=== PATIENT | female | born 1990 | race Two or more races ===

== ENCOUNTER 2020-08-05 15:52 | Emergency (ER) | payer SELFPAY ==
[~2020-08-05] VITALS: Ht 160 cm; Wt 46.3 kg
[2020-08-05 17:32] VITALS: BP 123/65
== END 2020-08-05 17:17 | disposition home or self-care (01) ==
LOC: ER 15:52
DX: J20.9 Acute bronchitis, unspecified (principal); Z20.828 Contact with and (suspected) exposure to other viral communicable diseases
CPT/HCPCS: 36415; 71045; 87426

== ENCOUNTER 2024-12-13 23:47 | Emergency (ER) | payer MEDICAID ==
[~2024-12-13] VITALS: Ht 162.6 cm; Wt 77.7 kg
[2024-12-14 00:02] VITALS: TEMP 98.8
[2024-12-14] MEDS ORDERED: AUG875T PO (01:29)
[2024-12-14] MEDS ORDERED: KETO10TA PO (01:30)
[2024-12-14] MEDS ORDERED: ACET650T12 PO (01:30)
[2024-12-14] MEDS ORDERED: BENZ20GE13 MT (01:30)
--- NOTE | 2024-12-14 01:38 | ED.PDOC ---
History of Present Illness HPI Comments 34-year-old female came to ER for dental pain. Patient states she broke her right upper bicuspid tooth 4 days ago and since then she has been having pain at the site. No fever noted. Chief Complaint: Tooth Pain Time Seen by MD: 01:37 Reviewed Notes: Nurses Notes Allergies: Coded Allergies: NO KNOWN ALLERGIES (Unverified , 08/05/20) Home Meds Active Scripts Benzocaine (Dental) (ORAL ANALGESIC MAXIMUM ST) 20 % Gel, 20 % MT TIDPRN PRN for 3 Days, #10 GEL Prov:DIPESH JACKSON MD 12/14/24 Acetaminophen (Acetaminophen Er) 650 Mg Tab, 650 MG PO TIDPRN PRN for 5 Days, #15 TAB Prov:DIPESH JACKSON MD 12/14/24 Ketorolac Tromethamine (Ketorolac Tromethamine) 10 Mg Tab, 1 TAB PO TID, #15 TAB Prov:DIPESH JACKSON MD 12/14/24 Amoxicillin & Pot Clavulanate (AUGMENTIN TABLET) 875 Mg Tb, 875 MG PO BID for 7 Days, #14 TAB Prov:DIPESH JACKSON MD 12/14/24 Information Source: Patient Mode of Arrival: Ambulatory Severity: Moderate Review of Systems REVIEW OF SYSTEMS: No fever, no chills, or fatigue HEENT: No sore throat, no earache, no congestion, no neck pain. Cardiac: No chest pain. No palpitations. Lungs: No shortness of breath, no cough. GI: No nausea, no vomiting, no diarrhea, no constipation, no abdominal pain : No dysuria, frequency, or urgency. No hematuria. Musculoskeletal: No joint pain , no joint swelling, no extremity edema. Skin: No rash, no itching. Neuro: No headache, no dizziness, no weakness Vital Signs Vital Signs Date Time Temp Pulse Resp B/P (MAP) Pulse Ox O2 Delivery O2 Flow Rate FiO2 12/14/24 00:02 98.8 93 16 155/99 (117) 100 98.8 Physical Exam General: Awake, alert and oriented. No acute distress. Skin: Skin in warm, dry and intact. Appropriate color for ethnicity. Nailbeds pink with no cyanosis. HEENT: The head is normocephalic and atraumatic. Conjunctivae are clear without exudates or hemorrhage. Sclera is non-icteric. EOM are intact. No signs of nystagmus. Eyelids are normal in appearance without swelling or lesions. Oral mucosa is pink and moist Neck: The neck is supple with normal range of motion. No JVD. Cardiac: Heart rate and rhythm are normal. No murmurs, gallops, or rubs are auscultated. Respiratory: No signs of respiratory distress. Lung sounds are clear in all lobes bilaterally without rales, ronchi, or wheezes. Abdominal: Abdomen is soft, non-tender without distention. Bowel sounds are present and normoactive in all four quadrants. Extremities: Upper and lower extremities are atraumatic in appearance without deformity or edema. Neurological: The patient is awake, alert and oriented to person, place, and time with normal speech. Speech is clear. There is no facial asymmetry. Psychiatric: Appropriate mood and affect. Good judgement and insight. No visual or auditory hallucinations. Past Medical History PAST MEDICAL HISTORY: Denies Surgical History: Denies all surgeries MANAGEMENT RETAIL INTERN History: No Pertinent MANAGEMENT RETAIL INTERN History Family History Family History: Family hx of DM Social History Smoker: Non-Smoker Alcohol: Denies ETOH Use Drugs: Denies Drug Use Lives In: Home Was a procedure done? Was a procedure done?: No Differential Dx Considerations may include: Dental caries, dental infection X-Ray, Labs, Meds, VS Vital Signs Date Time Temp Pulse Resp B/P (MAP) Pulse Ox O2 Delivery O2 Flow Rate FiO2 12/14/24 00:02 98.8 93 16 155/99 (117) 100 98.8 Time of 1ST Reevaluation: 01:33 Reevaluation 1ST: Unchanged Patient Education/Counseling: Diagnosis, Treatment Family Education/Counseling: No Family Present Departure 1 Departure Impression: Ruled Out: Dental infection Disposition: 01 HOME / SELF CARE Condition: Stable Additional Instructions: ED DISCHARGE INSTRUCTIONS Instructions: Please read all instructions provided in this packet carefully. Follow up with your dentist as soon as possible. Return to the emergency department if you notice face swelling, tongue swelling, difficulty swallowing, difficulty breathing, fever. Although you have been discharged from the Emergency Department, this does not mean that you have a "clean bill of health". No definitive diagnosis for your symptoms has been made today. It is possible that you are in the process of developing a serious illness. This is why you must return to the ED without fail if any new or worsening symptoms (especially if your symptoms include chest pain, trouble breathing, abdominal pain, fever, headache, confusion, trouble seeing, or trouble walking) It is also very important that you see a primary care doctor within the next 3-5 days to follow up. If you are unable to get an appointment, return to the ED for re-evaluation. e-Prescriptions Benzocaine (Dental) (ORAL ANALGESIC MAXIMUM ST) 20 % Gel 20 % MT TIDPRN PRN for 3 Days, #10 GEL Prov: DIPESH JACKSON MD 12/14/24 Acetaminophen (Acetaminophen Er) 650 Mg Tab 650 MG PO TIDPRN PRN for 5 Days, #15 TAB Prov: DIPESH JACKSON MD 12/14/24 Ketorolac Tromethamine (Ketorolac Tromethamine) 10 Mg Tab 1 TAB PO TID, #15 TAB Prov: DIPESH JACKSON MD 12/14/24 Amoxicillin & Pot Clavulanate (AUGMENTIN TABLET) 875 Mg Tb 875 MG PO BID for 7 Days, #14 TAB Prov: DIPESH JACKSON MD 12/14/24 Comments Extensive evaluation was performed in attempt to identify or rule out: (See differential diagnosis section) The following tests were ordered, and results were reviewed by me: (See diagnostic results section) The following test were independently interpreted by me: N/A I reviewed and agreed with the following test results read by other providers: N/A I reviewed the following notes from the pt's past medical encounters: (None available at this time) Additional information was gathered from interviewing the following independent historians: N/A Discussion of management or test interpretation with external physician/other qualified 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 Due to patient's current clinical condition, high risk of decline and poor outcome if discharged and need for further inpatient management and monitoring, patient will be admitted to the hospital. Drug therapy requiring intensive monitoring for toxicity: N/A Parenteral controlled substances: N/A Decision regarding elective major surgery with identified patient or procedure risk factors: N/A Decision regarding emergency major surgery: N/A Decision not to resuscitate or to de-escalate care because of poor prognosis: N/A Diagnosis or treatment significantly limited by social determinants of health: N/A Decision regarding hospitalization or escalation of hospital level of care: Risks and benefits of admission for further treatment of patient's condition was considered however due to patient's stable condition patient will be discharged to follow up closely or return to care for worsening of condition or inability to follow up. Critical Care Note Critical Care Time?: No Stability Stability form required: No Heart Score Heart Score: Heart Score Response (Comments) Value History N/A 0 EKG N/A 0 Age N/A 0 Risk Factors N/A 0 Troponin N/A 0 Total 0 I personally scribed for DIPESH JACKSON MD ([email or web address]) on 12/14/24 at 01:38. Electronically submitted by Dalton Ga ([email or web address]). I personally scribed for DIPESH JACKSON MD ([email or web address]) on 12/14/24 at 01:40. Electronically submitted by Dalton Ga ([email or web address]). DIPESH JACKSON MD Dec 14, 2024 01:38
[2024-12-14 03:00] VITALS: PULSE 88; RESP 14; O2SAT 100
[2024-12-14 03:04] VITALS: BP 141/93; PULSE 88; RESP 16; O2SAT 100
== END 2024-12-14 03:07 | disposition home or self-care (01) ==
LOC: ER 23:47
DX: K04.7 Periapical abscess without sinus (principal); Z79.899 Other long term (current) drug therapy
CPT/HCPCS: 99283; J7030